=== PATIENT | male | born 1925 | race Caucasian/White ===

== ENCOUNTER 2016-09-05 15:32 | Emergency (ER) | payer OTHER ==
[~2016-09-05] VITALS: Ht 175.3 cm; Wt 81.1 kg
[~2016-09-05 15:32] MED LIST: CYAN10005 PO; DOXA-10 PO; LOSA1TAB PO; MULTTAB58 PO; NIAC1TAB3 PO; PANT40TA PO
[2016-09-05 15:34] VITALS: TEMP 36.6; Ht 175.3 cm; Wt 81.1 kg
--- NOTE | 2016-09-05 16:01 | EMERGENCY ROOM VISIT NOTE ---
History Report prepared by Valentin: Zaheer Pena Under the Supervision of: Dr. Evaristo Sutton M.D. First contact with patient: 15:39 Chief Complaint: FALL Stated Complaint: FALL ON 09/03 History of Present Illness The patient is an 89 year old male who presents to the Emergency Room with complaints of an acute fall that occurred five days ago. The patient tripped over a curb and landed on the right knee. He did not hit his head or lose consciousness. He denies head, neck, back, chest pain, or abdominal pain. The patient has had some trouble breathing. He came to the ED today because he started to experience right-sided rib pain, especially with movement. The patient has not had much knee pain and he is not having trouble ambulating. The patient is not on blood thinners and denies any major medical problems. He denies any recent lightheadedness, dizziness, vomiting, black or bloody stools. The patient lives with his son, who notes that the patient has been doing very well and the fall was unexpected and unusual. Source of History: patient, family Onset: five days ago Position: other (global) Quality: other (fall) Timing: other (acute) Associated Symptoms: + SOB, No LOC, No abdominal pain, No back pain, No chest pain, No headache, No hematochezia, No melena, No neck pain, No vomiting Review of Systems See HPI for pertinent positives & negatives. A total of 10 systems reviewed and were otherwise negative. Past Medical & Surgical Medical Problems: (1) Carcinoma of prostate (2) Cholelithiasis (3) Chronic kidney disease, stage III (moderate) (4) Diverticulosis of colon (5) Esophageal reflux (6) Hernia Surgery (7) HTN (hypertension) (8) Hyperlipidemia Old medical records were reviewed. Nurse's notes were reviewed and I agree with. Family History Insignificant due to advanced age Social History Smoking Status: Never Smoker Alcohol Use: none Drug Use: none Marital Status: Housing Status: lives with family Occupation Status: retired Current/Historical Medications Scheduled Cyanocobalamin (Vitamin B-12), 1,000 MCG PO DAILY Doxazosin Mesylate (Doxazosin Mesylate), 8 MG PO DAILY Losartan Potassium (Cozaar), 25 MG PO DAILY Multiple Vitamin (Multivitamin), 1 TAB PO DAILY Niacinamide (Niacin), 500 MG PO DAILY Pantoprazole (Protonix), 40 MG PO DAILY Scheduled PRN Oxycodone Immediate Rel Tab (Roxicodone Ir), 1 TAB PO Q6 PRN for Severe Pain Allergies Coded Allergies: No Known Allergies (Unverified , 09/05/16) Physical Exam Vital Signs Date Time Temp Pulse Resp B/P Pulse Ox O2 Delivery O2 Flow Rate FiO2 09/05/16 17:21 56 18 188/72 97 09/05/16 16:55 57 09/05/16 16:36 54 18 183/78 97 Room Air 09/05/16 15:34 36.6 68 18 194/88 96 Room Air Physical Exam General: Non ill appearing older male in no acute distress. HEENT: Normal cephalic atraumatic. Pupils are equal round and reactive to light. Extraocular movements are intact. Oropharynx is pink with moist mucous membranes. No swelling of the mouth lips or tongue. Neck: Supple with a midline trachea. No meningeal signs or stiffness, no JVD or bruits. No Stridor. Chest: Clear to auscultation bilaterally. No wheezes or rhonchi. No increased work of breathing. Minimal tenderness in the right lower anterior ribs, no tenderness in the right lower quadrant. Pain seems to be worse when he moves Heart: regular rate and rhythm. Abdomen: Soft nontender, nondistended without rebound guarding or rigidity. Extremities: No cyanosis clubbing or edema. No calf tenderness or assymetry Spine/Back. Non tender to palpation. No CVA tenderness Skin: Good turgor without rashes. Neurologic exam: Cranial nerves two through 12 are intact. Motor and sensation are intact and symmetrical throughout. Medical Decision & Procedures ER Provider Diagnostic Interpretation: X-ray results as stated below per interpretation by me and the radiologist: PA CHEST WITH RIGHT-SIDED RIB SERIES CLINICAL HISTORY: Fall with right-sided rib pain. FINDINGS: A PA chest radiograph with 4 additional views may right-sided rib series is compared to study dated 05/15/2016. The heart is top normal for projection and there is atherosclerotic calcification of the thoracic aorta. There are calcified mediastinal and hilar lymph nodes. Chronic interstitial thickening and mild elevation right hemidiaphragm is similar to previous. No airspace consolidation or large pleural effusion is identified. No pneumothorax is seen. The skeletal structures are osteopenic. There are acute appearing nondistracted right anterolateral 5th through 7th rib fractures identified on the rib series. The remainder of the bony thorax is grossly intact. Calcified gallstones are identified in the right upper quadrant. Surgical clips project over the right lower neck. IMPRESSION: 1. The lungs are clear. 2. There are acute appearing and nondistracted right anterolateral 5th through 7th rib fractures seen on the rib series. 3. Cholelithiasis. Electronically signed by: Mejia Crocker M.D. 09/05/2016 4:38 PM Dictated Date/Time: 09/05/2016 4:35 PM Medications Administered Medications (Trade) Dose Ordered Sig/Parish Route Start Time Stop Time Status Last Admin Dose Admin Oxycodone HCl (Roxicodone Immediate Rel 5MG Home Pack) 1 homepack UD ONCE PO 09/05/16 17:00 09/05/16 17:01 DC 09/05/16 17:17 1 HOMEPACK ED Course 1542: Past medical records reviewed. The patient was evaluated in room A3, and a complete history and physical examination were performed. 1646: Reassessed the patient. Discussed the findings with him. He verbalized understanding and agreement of the treatment plan. The patient is ready for discharge. 1700: Oxycodone IR 5 mg PO homepack. Medical Decision Differential diagnosis includes rib fracture, pneumothorax, pulmonary contusion , intraabdominal injury, orthopedic injury. This patient comes in as described above. He looks well. He suffered a mechanical fall several days ago and has pain in his anterior chest/lateral mid ribs. He seems well at rest and it hurts when he moves. He's had no shortness breath. He's had no fever or chills or cough. He has no abdominal pain specifically, no right upper quadrant abdominal pain and there is no bruising on exam. I did a chest x-ray with rib series. He was offered pain medication but declined while he was here. He has no pneumothorax or pulmonary contusion and he may have some nondisplaced rib fractures 5,6 ,and 7 on that side. This does explain his symptoms. He has nothing to suggest cardiac event or infection at this point. He is to rest and drink plenty of fluids. Use primarily Tylenol and/or ibuprofen but do not exceed the [id number] recommended dosages. For more severe pain, he was given OxyIR 5 mg, 1 pill every 6 hours as needed. He was warned that this could make him drowsy and do not take before drinking, driving, working and be careful getting up and down. He should return if: increasing pain, worsening of symptoms, shortness of breath , fever or chills, any new problems or concerns. He is happy with the plan and discharged to home. Impression Primary Impression: Multiple rib fractures Scribe Attestation The scribe's documentation has been prepared under my direction and personally reviewed by me in its entirety. I confirm that the note above accurately reflects all work, treatment, procedures, and medical decision making performed by me. Departure Information Dispostion Home / Self-Care Prescriptions Oxycodone Immediate Rel Tab (ROXICODONE IR) 5 Mg Tab 1 TAB PO Q6 Y for Severe Pain, #14 TAB Prov: Evaristo Sutton M.D. 09/05/16 Referrals RV. Barnes MD (PCP) Forms HOME CARE DOCUMENTATION FORM, IMPORTANT VISIT INFORMATION Patient Instructions [facility] Additional Instructions Rest. Drink plenty of fluids. Return if: Increasing pain, worsening of symptoms, fever or chills, any new problems or concerns. Use Aleve and/or Tylenol/acetaminophen if needed for pain. Do not exceed the [id number] recommended dosages. Do not take with any other medications that contain Tylenol/acetaminophen For more severe pain, may use OxyIR 5 mg, 1 pill every 6 hours. OxyIR may make you drowsy and do not take before drinking, driving, working. Do not take with any other medications that sedate you. Be extremely careful after taking particularly when getting up and down. Return if: Increasing pain, worsening of symptoms, fever or chills, any new problems or concerns. Problem Qualifiers Primary Impression: Multiple rib fractures Laterality: right
--- NOTE | 2016-09-05 16:40 | DIAGNOSTIC IMAGING REPORT ---
PA CHEST WITH RIGHT-SIDED RIB SERIES CLINICAL HISTORY: Fall with right-sided rib pain. FINDINGS: A PA chest radiograph with 4 additional views may right-sided rib series is compared to study dated 05/15/2016. The heart is top normal for projection and there is atherosclerotic calcification of the thoracic aorta. There are calcified mediastinal and hilar lymph nodes. Chronic interstitial thickening and mild elevation right hemidiaphragm is similar to previous. No airspace consolidation or large pleural effusion is identified. No pneumothorax is seen. The skeletal structures are osteopenic. There are acute appearing nondistracted right anterolateral 5th through 7th rib fractures identified on the rib series. The remainder of the bony thorax is grossly intact. Calcified gallstones are identified in the right upper quadrant. Surgical clips project over the right lower neck. IMPRESSION: 1. The lungs are clear. 2. There are acute appearing and nondistracted right anterolateral 5th through 7th rib fractures seen on the rib series. 3. Cholelithiasis. Electronically signed by: Mejia Crocker M.D. 09/05/2016 4:38 PM Dictated Date/Time: 09/05/2016 4:35 PM
[2016-09-05] MEDS ORDERED: OXYC1TAB3 PO (16:58)
[2016-09-05] MEDS ORDERED: OXYCODONE IR HOME PACK PO ONE (17:00)
[2016-09-05 17:21] VITALS: BP 188/72; PULSE 56; O2SAT 97
== END 2016-09-05 17:24 | disposition home or self-care (01) ==
LOC: C.EDB 15:33 → C.EDA 17:24
DX: S22.41XA Multiple fractures of ribs, right side, initial encounter for closed fracture (principal); W19.XXXA Unspecified fall, initial encounter; K21.9 Gastro-esophageal reflux disease without esophagitis; N18.3 Chronic kidney disease, stage 3 (moderate); I12.9 Hypertensive chronic kidney disease with stage 1 through stage 4 chronic kidney disease, or unspecified chronic kidney disease; Z79.899 Other long term (current) drug therapy

== ENCOUNTER → 2016-09-14 | Outpatient (CLI) | payer OTHER ==
[~2016-09-14] MED LIST changes: +OXYC1TAB3 PO
[2016-09-14 10:51] LABS: BASO % 0.3 %; BASO ABS # 0.02 K/uL (0-0.2); COMPLETE YES; EOS % 1.6 %; HEMATOCRIT 44.2 % (42-52); IG% 0.1 %; LYMPH % 22.9 %; LYMPH ABS # 1.58 K/uL (1.2-3.4); MEAN CELL VOLUME 93.2 fL (80-100); MEAN CORPUSCULAR HEMOGLOBIN 30.6 pg (25-34); MEAN CORPUSCULAR HGB CONC 32.8 g/dl (32-36); MEAN PLATELET VOLUME 10.4 fL (7.4-10.4); MONO % 11.6 %; NEUT % 63.5 %; PLATELET COUNT 207 K/uL (130-400); RED BLOOD COUNT 4.74 M/uL (4.7-6.1); WHITE BLOOD COUNT 6.91 K/uL (4.8-10.8)
[2016-09-14 11:26] LABS: ALT/SGPT 19 U/L (12-78); AST/SGOT 18 U/L (15-37); BLOOD UREA NITROGEN 25 mg/dl (7-18); BUN/CREATININE RATIO 19.5 (10-20); CALCIUM 8.9 mg/dl (8.5-10.1); CARBON DIOXIDE 28 mmol/L (21-32); CHLORIDE 108 mmol/L (98-107); GLUCOSE 94 mg/dl (70-99); MAGNESIUM 2.2 mg/dl (1.8-2.4); POTASSIUM 4.2 mmol/L (3.5-5.1); SODIUM 143 mmol/L (136-145)
[2016-09-14 11:37] LABS: ALKALINE PHOSPHATASE 110 U/L (45-117)
== END | disposition home or self-care (01) ==
LOC: C.LAB1850 09:26
PROVIDERS: ATTEND Internal Medicine
DX: I49.9 Cardiac arrhythmia, unspecified (principal)

== ENCOUNTER → 2016-11-12 | Outpatient (CLI) | payer OTHER ==
[2016-11-12 12:05] LABS: BASO % 0.1 %; BASO ABS # 0.01 K/uL (0-0.2); COMPLETE YES; EOS % 1.8 %; HEMATOCRIT 46.4 % (42-52); IG% 0.1 %; LYMPH % 24.1 %; LYMPH ABS # 1.63 K/uL (1.2-3.4); MEAN CELL VOLUME 94.7 fL (80-100); MEAN CORPUSCULAR HEMOGLOBIN 30.4 pg (25-34); MEAN CORPUSCULAR HGB CONC 32.1 g/dl (32-36); MEAN PLATELET VOLUME 10.8 fL (7.4-10.4); MONO % 13.1 %; NEUT % 60.8 %; PLATELET COUNT 195 K/uL (130-400); WHITE BLOOD COUNT 6.77 K/uL (4.8-10.8)
[2016-11-12 12:16] LABS: CALCIUM 9.6 mg/dl (8.5-10.1)
[2016-11-12 12:23] LABS: ALT/SGPT 23 U/L (12-78); BLOOD UREA NITROGEN 24 mg/dl (7-18); BUN/CREATININE RATIO 18.6 (10-20); CARBON DIOXIDE 27 mmol/L (21-32); CHLORIDE 107 mmol/L (98-107); CHOLESTEROL 167 mg/dl (0-200); GLUCOSE 90 mg/dl (70-99); POTASSIUM 4.2 mmol/L (3.5-5.1); SODIUM 141 mmol/L (136-145); TRIGLYCERIDES 208 mg/dl (0-150); VERY LOW DENSITY LIPOPROT CALC 42 mg/dl
[2016-11-12 12:33] LABS: ALB/GLOB RATIO 1.2 (0.9-2); ALKALINE PHOSPHATASE 110 U/L (45-117); AST/SGOT 22 U/L (15-37); CHOLESTEROL/HDL RATIO 3.7; HDL CHOLESTEROL 45 mg/dl; LDL CHOLESTEROL CALCULATED 80 mg/dl; THYROID STIMULATING HORMONE 0.816 uIu/ml (0.300-4.500)
[2016-11-12 12:55] LABS: RATIO 131.9 mcg/mg (0-30.0)
[2016-11-12 13:01] LABS: URINE APPEARANCE CLEAR (CLEAR); URINE BILIRUBIN NEG (NEG); URINE COLOR YELLOW; URINE EPITHELIAL CELL AUTO 0-5 /lpf (0-5); URINE NITRITE NEG (NEG); URINE SPECIFIC GRAVITY 1.009 (1.000-1.030); UROBILINOGEN NEG (NEG); ZZUR CULT IF INDIC CLEAN CATCH NO
[2016-11-12 13:09] LABS: MANUAL MICROSCOPIC REQUIRED? NO; REVIEW REQ? NO
== END | disposition home or self-care (01) ==
LOC: C.LAB1850 09:35
PROVIDERS: ATTEND Internal Medicine
DX: I12.9 Hypertensive chronic kidney disease with stage 1 through stage 4 chronic kidney disease, or unspecified chronic kidney disease (principal); R31.9 Hematuria, unspecified; E78.5 Hyperlipidemia, unspecified; E53.8 Deficiency of other specified B group vitamins; N18.3 Chronic kidney disease, stage 3 (moderate)